=== PATIENT | male | born 1970 | race Caucasian/White ===

== ENCOUNTER 2019-11-13 14:45 | Emergency (ER) | payer BC, OTHER ==
[2019-11-13] MEDS ORDERED: Bacitracin Oint 1 GM U/D Packet TOP ONE (14:57)
[2019-11-13] MEDS ORDERED: Lidocaine 1% 30 ML SDV INJECT ONE (14:57)
--- NOTE | 2019-11-13 15:00 | EDM.PDOC ---
ED HPI GENERAL MEDICAL PROBLEM - General Chief Complaint: Laceration Stated Complaint: hit head Time Seen by Provider: 11/13/19 14:57 Source of Information: Reports: Patient History Limitations: Reports: No Limitations - History of Present Illness INITIAL COMMENTS - FREE TEXT/NARRATIVE: This 49 yo male patient reports to the ED with a laceration above his left eye due to a fall. The patient reports he slipped and fell directly onto concrete. The patient denies any loss of consciousness before, during or after the fall. The patient did have a shop towel applied to the area to control the bleeding. The patient reports no vision changes. The patient denies any additional symptoms or concerns. Onset: Today Duration: Minutes: Location: Reports: Head (left eyebrow/forehead) Quality: Reports: Ache, Dull Severity: Moderate Improves with: Reports: None Worsens with: Reports: None Context: Reports: Other Associated Symptoms: Reports: No Other Symptoms - Related Data Allergies Allergy/AdvReac Type Severity Reaction Status Date / Time No Known Allergies Allergy Verified 11/13/19 15:04 Home Meds: Home Meds Metoprolol Succinate [Toprol XL] 25 mg PO DAILY 11/13/19 [History] atorvaSTATin Calcium [Atorvastatin Calcium] 10 mg PO DAILY 11/13/19 [History] hydroCHLOROthiazide [Hydrochlorothiazide] 25 mg PO DAILY 11/13/19 [History] Past Medical History - Past Health History Medical/Surgical History: Denies Medical/Surgical History Cardiovascular History: Reports: Hypertension Social & Family History - Caffeine Use Caffeine Use: Reports: Coffee, Soda ED ROS GENERAL - Review of Systems Review Of Systems: Comprehensive ROS is negative, except as noted in HPI. ED EXAM, SKIN/RASH Exam: See Below Exam Limited By: No Limitations General Appearance: Alert, WD/WN, Moderate Distress Eye Exam: Bilateral Eye: EOMI, Normal Inspection, PERRL Ears: Normal External Exam, Normal Canal, Hearing Grossly Normal, Normal TMs Nose: Normal Inspection, Normal Mucosa, No Blood Throat/Mouth: Normal Inspection, Normal Lips, Normal Teeth, Normal Gums, Normal Oropharynx, Normal Voice, No Airway Compromise Head: Other (laceration to the left eyebrow/forehead) Neck: Normal Inspection, Supple, Non-Tender, Full Range of Motion Respiratory/Chest: No Respiratory Distress, Lungs Clear, Normal Breath Sounds, No Accessory Muscle Use, Chest Non-Tender Cardiovascular: Normal Peripheral Pulses, Regular Rate, Rhythm (Male) Exam: Deferred Rectal (Males) Exam: Deferred Neurological: Alert, Oriented, CN II-XII Intact, Normal Cognition, Normal Gait, No Motor/Sensory Deficits Psychiatric: Normal Affect, Normal Mood Skin: Warm, Dry, Wound/Incision Location, Skin: Head Characteristics: Linear Associated features: Tenderness Lymphatic: No Adenopathy ED SKIN PROCEDURES - Laceration/Wound Repair Left Forehead Appearance: Subcutaneous Distal NVT: Neuro & Vascular Intact Anesthetic Type: Local Local Anesthesia - Lidocaine (Xylocaine): 1% Plain Local Anesthetic Volume: 3cc Skin Prep: Chlorhexidine (Hibiciens), Saline Exploration/Debridement/Repair: Wound Explored, Explored to Base, No Foreign Material Found, Multiple Flaps Aligned Closed with: Sutures Lac/Wound length In cm: 2.0 Suture Size: 5-0 # of Sutures: 10 Suture Type: Prolene, Interrupted, Simple Drain Placement: No Sterile Dressing Applied: Nurse Tetanus Status Addressed: Yes Complications: No Course - Vital Signs Last Recorded V/S: Last Vital Signs Temp 36.9 C 11/13/19 14:56 Pulse 75 11/13/19 14:56 Resp 16 11/13/19 14:56 BP 172/102 H 11/13/19 14:56 Pulse Ox 95 11/13/19 14:56 - Orders/Labs/Meds Meds: Medications Discontinued Medications Generic Name Dose Route Start Last Admin Trade Name Freq PRN Reason Stop Dose Admin Bacitracin 1 dose 11/13/19 14:57 11/13/19 15:04 Bacitracin Oint 1 Gm TOP 11/13/19 14:58 1 dose ONETIME ONE Administration Lidocaine HCl 30 ml 11/13/19 14:57 11/13/19 15:04 Xylocaine-Mpf 1% INJECT 11/13/19 14:58 30 ml ONETIME ONE Administration Departure - Departure Time of Disposition: 15:31 Disposition: Home, Self-Care 01 Condition: Fair Clinical Impression: Laceration of left eyebrow Qualifiers: Encounter type: initial encounter Qualified Code(s): S01.112A - Laceration without foreign body of left eyelid and periocular area, initial encounter - Discharge Information *PRESCRIPTION DRUG MONITORING PROGRAM REVIEWED*: Not Applicable *COPY OF PRESCRIPTION DRUG MONITORING REPORT IN PATIENT ARRON: Not Applicable Instructions: Sutures, Mullens, or Adhesive Wound Closure, [id number], Facial Laceration, [id number] Forms: ED Department Discharge Care Plan Goals: The patient was advised of the examination results during the visit. The laceration margins were well approximated during the visit. The patient should keep the area clean and dry over the next 24 hours. The patient should have the sutures removed in about 7-10 days. If the patient has any additional symptoms or concerns, the patient should either return to the emergency department or follow-up with his primary care facility. Sepsis Event Note - Focused Exam Vital Signs: Vital Signs Temp Pulse Resp BP Pulse Ox 11/13/19 14:56 36.9 C 75 16 172/102 H 95 Date Exam was Performed: 11/13/19 Time Exam was Performed: 15:28
[2019-11-13 15:04] VITALS: BP 172/102; PULSE 75
[2019-11-13] MEDS ORDERED: Diphtheria,Pertussis(Acell),Tetanus Vaccine 0.5 ML SDV IM ONE (15:30)
== END 2019-11-13 15:56 | disposition home or self-care (01) ==
LOC: DL.ED 14:45
DX: S01.112A Laceration without foreign body of left eyelid and periocular area, initial encounter (principal); I10 Essential (primary) hypertension; Z79.899 Other long term (current) drug therapy; Z23 Encounter for immunization; W19.XXXA Unspecified fall, initial encounter
CPT/HCPCS: 12011; 90471; 90715; 99282; J2001